=== PATIENT | male | born 1995 | race Caucasian/White ===

== ENCOUNTER 2022-05-08 16:12 | Emergency (ER) | payer SELFPAY ==
[~2022-05-08] VITALS: Ht 170.2 cm; Wt 60.8 kg
--- NOTE | 2022-05-08 16:25 | NUR ---
BIBS C/O RLQ PAIN RADIATING TO RIGHT TESTICLE THAT IS SWOLLEN/PAINFUL. AMBULATORY, PLACED ON BED, AAOX4, IN PAIN 10/10 PS
--- NOTE | 2022-05-08 16:35 | NUR ---
URINE SAMPLE SENT TO LAB
--- NOTE | 2022-05-08 16:45 | NUR ---
U/S TECH AT BED SIDE
[2022-05-08] MEDS ORDERED: HYDROCODONE/APAP 5/325MG TABLET PO ONE (17:30)
[2022-05-08 17:37] LABS: BILIRUBIN,URINE MODERATE (NEGATIVE); COLOR,URINE YELLOW (YELLOW); LEUKOCYTE ESTERASE ,URINE NEGATIVE (NEGATIVE); NITRITE, URINE NEGATIVE (NEGATIVE); PROTEIN,URINE TRACE mg/dl (NEGATIVE); UGLUCOSE NEGATIVE (NEGATIVE); UROBILINOGEN,URINE 0.2 EU/dL (0.2)
[2022-05-08] MEDS ORDERED: HYDROCODONE/APAP 5/325MG TABLET ONE (17:40)
[2022-05-08 17:46] LABS: BACTERIA,URINE RARE /HPF (None Seen); MUCUS,URINE Moderate /LPF (None Seen); SQUAMOUS EPITHELIAL CELL,UR 0-2 /HPF (None Seen); WBC,URINE 0-2 /HPF (0-3)
--- NOTE | 2022-05-08 18:15 | NUR ---
PATIENT TAKEN TO CT VIA WHEELCHAIR
[2022-05-08 20:11] LABS: BASOPHILS % (AUTO) 0.2 % (0.0-2.0); EOSINOPHILS % (AUTO) 1.4 % (0.0-6.0); HEMATOCRIT 47 % (39-51); HEMOGLOBIN 15.8 g/dL (13.5-17.5); LYMPHOCYTES # (AUTO) 1.8 K/uL (0.8-4.8); LYMPHOCYTES % (AUTO) 18.2 % (20.0-44.0); MEAN CORPUSCULAR HGB CONC 34 g/dl (31.0-36.0); MEAN CORPUSCULAR VOLUME 89 fL (80-96); MONOCYTES # (AUTO) 0.6 K/uL (0.1-1.30); MONOCYTES % (AUTO) 5.9 % (2.0-12.0); NEUTROPHILS # (AUTO) 7.3 K/uL (1.8-8.9); NEUTROPHILS % (AUTO) 74.3 % (43.0-81.0); PLATELET COUNT (AUTO) 177 K/uL (150-450); RED BLOOD CELL COUNT(AUTO) 5.25 MIL/uL (4.5-6.0); WHITE BLOOD COUNT (AUTO) 9.8 K/uL (4.3-11.0)
[2022-05-08 20:22] LABS: ALBUMIN 4.3 g/dL (3.4-5.0); BILIRUBIN,DIRECT 0.2 mg/dL (0.0-0.2); BILIRUBIN,TOTAL 1.6 mg/dL (0.2-1.0); CALCIUM, SERUM 9.3 mg/dL (8.5-10.1); CREATININE 1.2 mg/dL (0.6-1.3); POTASSIUM 3.8 mmol/L (3.5-5.1)
[2022-05-08] MEDS ORDERED: CEPH500T PO (20:34)
[2022-05-08] MEDS ORDERED: IBUP-1955 PO (20:34)
--- NOTE | 2022-05-08 20:54 | NUR ---
Patient discharged to home in stable condition. Written and verbal after care instructions given. Patient verbalizes understanding of instruction.
[2022-05-08 21:35] VITALS: BP 110/60
== END 2022-05-08 20:54 | disposition home or self-care (01) ==
LOC: ER 16:21
DX: N50.811 Right testicular pain (principal)
CPT/HCPCS: 36415; 76870-TC; 80048-TC; 80076-TC; 81001; 85025-TC